=== PATIENT | male | born 1980 | race Hispanic/Latino ===

== ENCOUNTER 2016-03-14 12:49 | Emergency (ER) | payer SELFPAY ==
[2016-03-14] MEDS ORDERED: Thiamine HCl 200 MG/2 ML VIAL ONE (13:24)
[2016-03-14 13:37] LABS: Bilirubin Negative (Negative); Blood, Urine Trace (Negative); Glucose, Urine (Dipstick) Negative (Negative); Ketone, Urine Negative (Negative); Nitrite Negative (Negative); Protein, Urine (Dipstick) Negative (Neg-Trace); Urobilinogen 0.2 mg/dL (0.2-1.0)
[2016-03-14] MEDS ORDERED: Ketorolac Tromethamine 30 MG/ML VIAL ONE (13:38)
[2016-03-14 13:45] LABS: #Basophils 0.1 thou/uL (0.0-0.2); #Eosinphils 0.1 thou/uL (0.0-0.7); #Lymphocytes 1.4 thou/uL (1.20-3.40); #Monocytes 0.4 thou/uL (0.11-0.59); #Neutrophils 4.3 thou/uL (1.40-6.50); %Basophils 1.3 % (0.0-1.0); Hematocrit 48.5 % (42.0-52.0); Mean Platelet Volume 7.3 fL (7.4-10.4); White Blood Cell (WBC) Count 6.3 thou/uL (4.8-10.8)
[2016-03-14 13:50] LABS: ALT (SGPT) 26 U/L (0-55); AST (SGOT) 17 U/L (5-34); Alkaline Phosphatase 92 U/L (40-150); Anion Gap 13 mmol/L (10-20); BUN (Urea Nitrogen) 14 mg/dL (8.9-20.6); Bilirubin, Total 0.6 mg/dL (0.2-1.2); Calc. Creatinine Clearance 0 mL/min (70-130); Calcium 9.1 mg/dL (7.8-10.44); Carbon Dioxide 27 mmol/L (22-29); Chloride 104 mmol/L (98-107); Estimated GFR-MDRD Greater than 90; Globulin 2.7 g/dL (2.4-3.5); Lipase 24 U/L (8-78); Protein, Total 7.1 g/dL (6.0-8.3)
[2016-03-14 13:51] LABS: Bacteria/HPF None Seen HPF (None Seen); RBC/HPF 0-3 HPF (0-3); Squamous Epithelial None Seen HPF (0-3); WBC/HPF None Seen HPF (0-3)
[2016-03-14 13:56] LABS: Troponin I Less than 0.010 ng/mL (< 0.028)
[2016-03-14 14:42] LABS: Methadone Not Detected (NotDetected); Methamphetamine Not Detected (NotDetected)
--- NOTE | 2016-03-14 16:02 | PICIS ---
[facility] EMERGENCY RECORD TRIAGE (13:18) PATIENT: PAYMENT: SJX Self Pay. (13:18) NAME: Jarad Busch JR, AGE: 35, GENDER: male, : Carolyn 1980, TIME OF GREET: Sun Mar 14, 2016 12:50, PREFERRED LANGUAGE: Kittitian, ETHNICITY: or , ECODE BILLING MAP: [facility], KG WEIGHT: 72.57 (est.), , , PERSON ID: [id number], PCP: None. (12:50 RHIC) Zip Code: [address], PHONE: . (13:44) COMPLAINT: Weakness. (12:50 RHIC) ADMISSION: URGENCY: 3 Urgent, ADMISSION SOURCE: Home, TRANSPORT: CAR, BED: TRIAGE. (12:50 RHIC) ASSESSMENT: Assessment: PATIENT STATES FEELING BAD TODAY, WEAK, DRY MOUTH AFTER DRINKING ETOH LAST NIGHT. (12:56 RHIC) IMMUNIZATIONS: Flu vaccine not up to date, Tetanus not up to date. (12:56 RHIC) SIRS SCORING: Heart Rate 110-139 (2), Temp range 96.8-101.1 (0), respiratory rate 12-24 (0), Mental Status altered: no (0). (12:56 RHIC) TRIAGE SCREENING: Patient denies suicidal ideation, Patient denies presence of domestic violence. (12:56 RHIC) TREATMENTS IN PROGRESS: Treatments given Prehospital: none. (12:56 RHIC) PROVIDERS: TRIAGE NURSE: Winter Swain RN. (12:50 RHIC) VITAL SIGNS: BP 158/99, Pulse 113, Resp 20, Pain 10, O2 Sat 98, on Room Air, Time 03/14/2016 12:54. (12:54 RHIC) KNOWN ALLERGIES No Known Drug Allergies CURRENT MEDICATIONS (12:54 RHIC) antacid VITAL SIGNS VITAL SIGNS: BP: 158/99, Pulse: 113, Resp: 20, Pain: 10, O2 sat: 98 on Room Air, Time: 03/14/2016 12:54. (12:54 RHIC) BP: 160/97, Pulse: 89, Resp: 17, O2 sat: 98 on Room Air, Time: 03/14/2016 13:30. (13:30 KMOR) BP: 132/77, Pulse: 87, Resp: 17, O2 sat: 98 on Room Air, Time: 03/14/2016 13:45. (13:45 KMOR) Temp: 98.5 (Oral), Time: 03/14/2016 14:26. (14:26 KMOR) BP: 136/80, Pulse: 95, Resp: 16, Pain: 8, O2 sat: 99 on Room Air, Time: 03/14/2016 14:30. (14:30 KMOR) BP: 128/67, Pulse: 82, Resp: 16, Pain: 8, O2 sat: 97 on Room Air, Time: 03/14/2016 15:00. (15:00 KMOR) Temp: 98.4, Time: 03/14/2016 15:30. (15:30 KMOR) NURSING ASSESSMENT: CARDIOVASCULAR (13:45 KMOR) CONSTITUTIONAL: Patient arrives ambulatory, Gait steady, History obtained from patient, Patient appears, uncomfortable, Patient cooperative, Patient alert, Oriented to person, place and &a-1R&a+25V*p+0X*a4343T*c202B*c15G*c2P*p-0X&a-25V&a+1R Name: Jarad Busch : 1980 M35 MedRec: [id number] AcctNum: [id number] Prepared: Norma Mar 14, 2016 15:34 by Interface Page 1 of 13 pMD [facility] EMERGENCY RECORD time, Skin warm, Skin dry, Skin normal in color, Mucous membranes pink, Mucous membranes, tacky, Patient is well-groomed, Patient complains of Weakness, Patient reports weakness and fatigue starting today. Repots was drinking last night and did not sleep well. Reports no cardiac history. PAIN: aching pain, on a scale 0-10 patient rates pain as 10, headache. CARDIOVASCULAR: Cardiovascular assessment findings include heart rate, tachycardic, Rate 115, Heart rhythm normal sinus, Heart sounds normal, S1, S2, Left radial pulse +4(strong and bounding), Right radial pulse +4(strong and bounding), No associated diaphoresis, no associated dyspnea, no associated dizziness, no associated palpitations, no associated paresthesias, no associated syncopal episode, Associated with weakness, generalized. RESPIRATORY/CHEST: Breath sounds clear, Respiratory assessment findings include respiratory effort easy, Respirations regular, Conversing normally, Neck and chest exam findings include trachea midline, Chest expansion equal, Chest movement symmetrical, no signs of distress, no associated cough noted. NOTES: Patient tolerated procedure well. NURSING PROCEDURE: FAMILY RESOURCE MANAGEMENT SPECIALIST (12:55 KMOR) PATIENT IDENTIFIER: Patient actively involved in identification process, Patient's identity verified by patient stating name, Patient's identity verified by patient stating date. FAMILY RESOURCE MANAGEMENT SPECIALIST: Cardiac monitoring indicated for weakness, Patient placed on passenger car inspector, Heart rate: 113, showing sinus tachycardia, Patient placed on non-invasive blood pressure monitor, with disposable blood pressure cuff applied, Patient placed on continuous pulse oximetry, Adult/pediatric oxisensor applied, Oxygen saturation 97%. NOTES: Patient tolerated procedure well. NURSING PROCEDURE: DISCHARGE NOTE (15:30 KMOR) DISCHARGE: Patient discharged to home, ambulating without assistance, family driving, accompanied by other family member, Summary of Care printed/ provided, Transition record given to patient, Discharge instructions given to patient, Simple or moderate discharge teaching performed, by BHARATH Mcgraw, Discharge instructions and follow up reviewed with patient. Pt ambulatory to discharge desk., Above person(s) verbalized understanding of discharge instructions and follow-up care. BELONGINGS: Belongings remain with patient, Valuables remain with patient. VITAL SIGNS: Temp: 98.4. NURSING PROCEDURE: EKG CHART (12:52 KMOR) PATIENT IDENTIFIER: Patient actively involved in identification process, Patient's identity verified by patient stating name, &a-1R&a+25V*p+0X*d8020A*c202B*c15G*c2P*p-0X&a-25V&a+1R Name: Jarad Busch Claudia HILL : 1980 M35 MedRec: [id number] AcctNum: [id number] Prepared: Norma Mar 14, 2016 15:34 by Interface Page 2 of 13 pMD [facility] EMERGENCY RECORD Patient's identity verified by patient stating date. EKG: EKG indicated for complaint of chest pain, 12 lead EKG performed on the left chest, done by BHARATH Mcgraw, first EKG. FOLLOW-UP: After procedure, EKG for interpretation given to Dr. Raman. NOTES: Patient tolerated procedure well. NURSING PROCEDURE: IV PATIENT IDENITIFIER: Patient actively involved in identification process, Patient's identity verified by patient stating name, Patient's identity verified by patient stating date. (13:20 KMOR) Patient actively involved in identification process, Patient's identity verified by patient stating name, Patient's identity verified by patient stating date. (15:31 KMOR) IV SITE 1: IV therapy indicated for hydration, IV therapy indicated for medication administration, IV established, to the left antecubital, using an 18 gauge catheter, Saline lock established, Flushed with normal saline (mls): 10CC, Labs drawn at time of placement, labeled in the presence of the patient and sent to lab. (13:20 KMOR) FOLLOW-UP SITE 1: After procedure, 2x3 ensure dressing applied, After procedure, no drainage at IV site, After procedure, no swelling at IV site, After procedure, no redness at IV site. (13:20 KMOR) IV discontinued, due to patient being discharged, catheter intact. (15:31 KMOR) NOTES: Patient tolerated procedure well. (13:20 KMOR) Patient tolerated procedure well. (15:31 KMOR) NURSING PROCEDURE: NURSE NOTES NURSES NOTES: Notes: Warm blanket provided to patient. (13:37 KMOR) Notes: Patient ambulatory to bathroom with steady gait. (13:57 KMOR) Notes: Patient reports still feeling back, reports just really tired, family at bedside. Informed patient would be getting another liter of fluids. Lights turned down, patient encouraged to rest. (14:16 KMOR) Notes: Patient ambulatory to bathroom with steady gait. (14:39 KMOR) NURSING PROCEDURE: URINE COLLECTION (13:20 KMOR) PATIENT IDENTIFIER: Patient actively involved in identification process, Patient's identity verified by patient stating name, Patient's identity verified by patient stating date. URINE COLLECTION MALE: Urine collected by void, output amount (mL) 150ML, urine clear in color, and clear, Specimen labeled in the presence of the patient and sent to lab. NOTES: Patient tolerated procedure well. &a-1R&a+25V*p+0X*u0962R*c202B*c15G*c2P*p-0X&a-25V&a+1R Name: Jarad Busch JR : 1980 M35 MedRec: [id number] AcctNum: [id number] Prepared: Norma Mar 14, 2016 15:34 by Interface Page 3 of 13 [facility] EMERGENCY RECORD ORDER DETAILS Order Name: FAMILY RESOURCE MANAGEMENT SPECIALIST ED, Status: Done, Time: 13:42 03/14/2016, User: LOBO, - Ordered for: DO Raman Joseph, - Entered by: BHARATH Reeder, Mariluz Green Mar 14, 2016 13:41, - Quantity: 1, Order Name: Cardiac Profile w/CKMB & Troponin - I, Status: Active, Time: 13:13 03/14/2016, User: IRVING, - Ordered for: DO Raman Joseph, - Entered by: DO Raman Joseph - Norma Mar 14, 2016 13:13, - Quantity: 1, Order Name: CBC with Differential, Status: Active, Time: 13:13 03/14/2016, User: IRVING, - Ordered for: DO Raman Joseph, - Entered by: DO Raman Joseph - Norma Mar 14, 2016 13:13, - Quantity: 1, Order Name: Comprehensive Metabolic Panel, Status: Active, Time: 13:13 03/14/2016, User: IRVING, - Ordered for: DO Raman Joseph, - Entered by: DO Raman Joseph - Norma Mar 14, 2016 13:13, - Quantity: 1, Order Name: Drug Screen, Urine, Status: Active, Time: 14:24 03/14/2016, User: IRVING, - Ordered for: DO Raman Joseph, - Entered by: DO Raman Joseph - Norma Mar 14, 2016 14:24, - Quantity: 1, Order Name: EKG 12 Lead in Emergency Room, Status: Active, Time: 13:41 03/14/2016, User: LOBO, - Ordered for: DO Raman Joseph, - Entered by: BHARATH Reeder, Mariluz Green Mar 14, 2016 13:41, - Quantity: 1, Order Name: Lipase, Status: Active, Time: 13:13 03/14/2016, User: IRVING, - Ordered for: DO Raman Joseph, - Entered by: DO Raman Joseph - [place] Mar 14, 2016 13:13, - Quantity: 1, Order Name: SALINE LOCK, Status: Done, Time: 13:21 03/14/2016, User: LOBO, - Ordered for: DO Raman Joseph, - Entered by: DO Raman Joseph - [place] Mar 14, 2016 13:13, - Quantity: 1, Order Name: Urinalysis w/ Rflx Microscopic, Status: Active, Time: 13:13 03/14/2016, User: IRVING, - Ordered for: DO Raman Joseph, - Entered by: DO Raman Joseph - [place] Mar 14, 2016 13:13, - Quantity: 1. MEDICATION ADMINISTRATION SUMMARY &a-1R&a+25V*p+0X*j0486C*c202B*c15G*c2P*p-0X&a-25V&a+1R Name: Jarad Busch Claudia HLIL : 1980 M35 MedRec: [id number] AcctNum: [id number] Prepared: Norma Mar 14, 2016 15:34 by Interface Page 4 of 13 pMD [facility] EMERGENCY RECORD Drug Name: Normal Saline, Dose Ordered: 1000 mL/hr, Route: IV Fluid Infusion, Status: Given, Time: 14:13 03/14/2016, Drug Name: Toradol injection, Dose Ordered: 30 mg, Route: IV Push, Status: Given, Time: 13:40 03/14/2016, Drug Name: thiamine injection, Dose Ordered: 100 mg, Route: IV Push, Status: Given, Time: 13:32 03/14/2016, Drug Name: Normal Saline, Dose Ordered: 1000 mL/hr, Route: IV Fluid Infusion, Status: Given, Time: 13:25 03/14/2016, Detailed record available in Medication Service section. MEDICATION SERVICE Normal Saline: Order: Normal Saline (0.9 % sodium chloride) - Dose: 1000 mL/hr : IV Fluid Infusion Schedule: Now Ordered by: Nathaniel Raman DO Entered by: DO Norma Rondon Mar 14, 2016 13:13 , Acknowledged by: BHARATH Schreiber Mar 14, 2016 13:20 Documented as given by: BHARATH Schreiber Mar 14, 2016 13:25 Patient, Medication, Dose, Route and Time verified prior to administration. Amount given: 1000ML, IV SITE #1 IV fluids established for hydration, IV SITE #1 into left antecubital, IV SITE #1 1st bag hung, amount 1 Liter hung, via primary tubing, Connections checked prior to administration, Line traced prior to administration, Catheter placement confirmed via flush prior to administration, IV site without signs or symptoms of infiltration during medication administration, No swelling during administration, No drainage during administration, IV flushed after administration, Correct patient, time, route, dose and medication confirmed prior to administration, Patient advised of actions and side-effects prior to administration, Allergies confirmed and medications reviewed prior to administration, Patient in position of comfort, Side rails up, Cart in lowest position, Family at bedside. : Follow Up : Response assessment performed, No signs or symptoms of allergic reaction noted, _IV SITE #1:_, IV fluid infusion discontinued, on [place] Mar 14, 2016 14:00, 35 minutes, ., Total amount infused: 1000ml. (14:00 KMOR) Normal Saline: Order: Normal Saline (0.9 % sodium chloride) - Dose: 1000 mL/hr : IV Fluid Infusion Schedule: Now Ordered by: Nathaniel Raman DO Entered by: DO Norma Rondon Mar 14, 2016 14:10 , Acknowledged by: BHARATH Shcreiber Mar 14, 2016 14:11 Documented as given by: BHARATH Schreiber Mar 14, 2016 14:13 Patient, Medication, Dose, Route and Time verified prior to administration. Amount given: 1000ml, IV SITE #1 IV fluids established for hydration, IV SITE #1 into right antecubital, IV SITE #1 2nd bag hung, amount 1 Liter hung, via primary tubing, Catheter placement confirmed via flush prior to administration, IV site without signs or &a-1R&a+25V*p+0X*t1163P*c202B*c15G*c2P*p-0X&a-25V&a+1R Name: Jarad Busch JR : 1980 M35 MedRec: [id number] AcctNum: [id number] Prepared: [place] Mar 14, 2016 15:34 by Interface Page 5 of 13 pMD [facility] EMERGENCY RECORD symptoms of infiltration during medication administration, No swelling during administration, No drainage during administration, IV flushed after administration, Correct patient, time, route, dose and medication confirmed prior to administration, Patient advised of actions and side-effects prior to administration, Allergies confirmed and medications reviewed prior to administration, Patient in position of comfort, Side rails up, Cart in lowest position, Family at bedside. : Follow Up : _IV SITE #1:_, IV fluid infusion discontinued, on TueMar 14, 2016 15:25, Total fluid hydration time IV site 1 1 hour, 15 minutes, ., Total amount infused: 1000ml, IV Discontinued with catheter intact, IV Line flushed after administration. (15:25 KMOR) thiamine injection: Order: thiamine injection (thiamine HCl) - Dose: 100 mg : IV Push Schedule: Now Ordered by: Nathaniel Raman DO Entered by: DO Norma Rondon Mar 14, 2016 13:14 , Acknowledged by: Mariluz Reeder RN [place] Mar 14, 2016 13:20 Documented as given by: Mariluz Reeder RN [place] Mar 14, 2016 13:32 Patient, Medication, Dose, Route and Time verified prior to administration. Amount given: 100MG, IV SITE #1 IVP, initial medication, Slowly, Connections checked prior to administration, Line traced prior to administration, Catheter placement confirmed via flush prior to administration, IV site without signs or symptoms of infiltration during medication administration, No swelling during administration, No drainage during administration, IV flushed after administration, Correct patient, time, route, dose and medication confirmed prior to administration, Patient advised of actions and side-effects prior to administration, Allergies confirmed and medications reviewed prior to administration, Patient in position of comfort, Side rails up, Cart in lowest position. : Follow Up : Response assessment performed, No signs or symptoms of allergic reaction noted, No change in symptoms, _IV SITE #1:_. (14:00 KMOR) Toradol injection: Order: Toradol injection (ketorolac tromethamine) - Dose: 30 mg : IV Push Schedule: Now Ordered by: Nathaniel Raman DO Entered by: Nathaniel Raman DO [place] Mar 14, 2016 13:35 , Acknowledged by: Mariluz Reeder RN [place] Mar 14, 2016 13:37 Documented as given by: Mariluz Reeder RN [place] Mar 14, 2016 13:40 Patient, Medication, Dose, Route and Time verified prior to administration. Amount given: 30mg, IV SITE #1 IVP, subsequent different medication, Slowly, Awake and alert- acceptable, Connections checked prior to administration, Line traced prior to administration, Catheter placement confirmed via flush prior to administration, IV site without signs or symptoms of infiltration during medication &a-1R&a+25V*p+0X*i1951L*c202B*c15G*c2P*p-0X&a-25V&a+1R Name: Jarad Busch JR : 1980 M35 MedRec: [id number] AcctNum: [id number] Prepared: Norma Mar 14, 2016 15:34 by Interface Page 6 of 13 pMD [facility] EMERGENCY RECORD administration, No swelling during administration, No drainage during administration, IV flushed after administration, Correct patient, time, route, dose and medication confirmed prior to administration, Patient advised of actions and side-effects prior to administration, Allergies confirmed and medications reviewed prior to administration, Patient in position of comfort, Side rails up, Cart in lowest position, Family at bedside. : Follow Up : Response assessment performed, No signs or symptoms of allergic reaction noted, _IV SITE #1:_. (14:00 KMOR) HPI WEAK-DIZZY (13:29 JPIP) CHIEF COMPLAINT: Patient presents for evaluation of weakness, Patient presents for evaluation of dizziness, Patient presents for evaluation of Generalized weakness and headache. HISTORIAN: History provided by patient. LOCATION: Symptoms are generalized, global headache. QUALITY: Patient is alert and oriented to person, place and time, [place] coma score is 15. SEVERITY: Current severity of pain rated as 10/10. TIME COURSE: Sudden onset of symptoms, Date and time of onset was this AM, There has been no change in the patient's symptoms over time, Patient states he's had symptoms like this before but did not seek medical care. ASSOCIATED WITH: No associated ataxia, No associated chest pain, Associated with chills, No associated ear pain, No associated fever, No associated gait disturbance, Associated with headache, No associated nausea, No associated palpitations, No associated vomiting, No associated visual changes, No associated upper respiratory infection, Also CO "dry mouth" Patient states he went out drinking last night. EXACERBATED BY: Patient's condition exacerbated by nothing. RELIEVED BY: Patient's condition relieved by nothing, Patient's condition relieved by nothing because patient has not tried anything for relief. ROS (13:31 JPIP) CONSTITUTIONAL: Historian reports chills, denies fever, denies lethargy, denies malaise. EYES: Historian denies eye pain, denies eye redness, denies photophobia, denies vision changes. ENT: Historian denies dysphagia, denies otalgia, denies otorrhea, denies rhinorrhea, denies sinus pain, denies sore throat. CARDIOVASCULAR: Historian denies chest pain, denies dyspnea on exertion, denies palpitations. RESPIRATORY: Historian denies cough, denies shortness of breath. GI: Historian denies abdominal pain, denies nausea, denies vomiting. MUSCULOSKELETAL: Historian denies myalgias. SKIN: Historian denies rash, denies skin changes, denies skin &a-1R&a+25V*p+0X*l2796I*c202B*c15G*c2P*p-0X&a-25V&a+1R Name: Jarad Busch Claudia HILL : 1980 M35 MedRec: [id number] AcctNum: [id number] Prepared: Norma Mar 14, 2016 15:34 by Interface Page 7 of 13 pMD [facility] EMERGENCY RECORD lesions. NEUROLOGIC: Historian denies confusion, denies dizziness, denies focal weakness, reports headache, denies paresthesias, denies vertigo. generalized weakness. ENDOCRINE: Historian denies polydipsia, denies polyuria. NOTES: All systems reviewed, negative except as described above. PAST MEDICAL HISTORY MEDICAL HISTORY: No past medical history. (12:56 RHIC) MALE SURGICAL HISTORY: Patient has no surgical history. (12:56 RHIC) PSYCHIATRIC HISTORY: No previous psychiatric history. (12:56 RHIC) SOCIAL HISTORY: Patient drinks socially, every week, Alcohol history notes: 3x a week - beer, Patient denies drug use, Patient has no smoking history. (12:56 RHIC) NOTES: Nursing records reviewed, Medication list reviewed. (13:34 JPIP) PHYSICAL EXAM (13:32 JPIP) CONSTITUTIONAL: Vital signs reviewed, Patient afebrile, Pulse, tachycardic, Blood pressure, hypertensive, Respiratory rate normal, Patient appears, uncomfortable, Patient appears pain free, Patient alert and oriented to person, place and time, CO 10/10 pain but is in bed and appears, at worst, to be uncomfortable. HEAD: Head exam included findings of head atraumatic, normocephalic. EYES: Eye exam included findings of eyelids normal to inspection, Pupils equally round and reactive to light, Left pupil 3 mm in size, Right pupil 3 mm in size, Extraocular muscles intact, Conjunctiva normal, Sclera normal, no periorbital ecchymosis, no periorbital edema, no periorbital erythema, no nystagmus. ENT: Pharynx exam normal, not injected, no swelling, symmetrical, Uvula exam normal, midline, no edema, Mouth exam normal, mucous membranes moist. NECK: Neck exam included findings of normal range of motion, Trachea midline, no cervical adenopathy, no tenderness. RESPIRATORY CHEST: Respiratory exam included findings of no respiratory distress, Breath sounds clear, No wheezing, No rales, No rhonchi, Breath sounds not absent, Breath sounds not diminished. CARDIOVASCULAR: Cardiovascular exam included findings of, rate tachycardic, rhythm regular, Heart sounds normal, no murmurs, no rub. ABDOMEN MALE: Abdominal exam included findings of abdomen nontender, Bowel sounds normal, Liver normal, Spleen normal, no distension, no mass, no pulsatile masses, no peritoneal signs, no rigidity, no guarding, no rebound. BACK: no costovertebral angle tenderness. UPPER EXTREMITY: Upper extremity exam included findings of &a-1R&a+25V*p+0X*c3873Y*c202B*c15G*c2P*p-0X&a-25V&a+1R Name: Jarad Busch JR : 1980 M35 MedRec: [id number] AcctNum: [id number] Prepared: Norma Mar 14, 2016 15:34 by Interface Page 8 of 13 pMD [facility] EMERGENCY RECORD inspection normal, Range of motion normal. LOWER EXTREMITY: Lower extremity exam included findings of inspection normal, Range of motion normal. NEURO: [place] coma scale 15, Neuro exam findings include patient oriented to person, place and time, Speech normal, no focal motor deficits, no nystagmus, CN II-XII intact, no extremity weakness. SKIN: Skin exam included findings of skin warm, dry, and normal in color. LYMPHATIC: Lymphatic exam included findings of cervical nodes normal, Submandibular normal. PSYCHIATRIC: Psychiatric exam included findings of patient oriented to person place and time, Affect, flat. LAB INTERPRETATION (14:18 JPIP) INTERPRETATION: I reviewed the lab results, All labs normal except as noted below, No clinically significant lab abnormalities, CBC normal, Chemistry abnormal, Glucose elevated, Cardiac enzymes normal, Liver functions normal, Lipase normal, Urinalysis normal. EVENTS TRANSFER: Triage to Emergency Triage. (Norma Mar 14, 2016 12:50 RHIC) Emergency Triage to Emergency Room -03. (12:58 KMOR) Removed from Emergency Emergency Room -03. (15:32 KMOR) EKG INTERPRETATION (13:42 JPIP) MONITOR STRIP: him clerk strip interpreted by Emergency Department Physician, Monitor strip shows sinus tachycardia, with no ectopics. 12 LEAD EKG INTERPRETATION: 12 lead EKG interpreted by Emergency Department Physician at time of study, 12 lead EKG shows, sinus tachycardia, Rate (beats per minute): 114, with no ectopics, Interpretation: normal EKG, Conduction normal, ST segments normal, T waves normal, [place] normal, Clinical impression:, other dysrhythmia Sinus tachycardia. O2SAT INTERPRETATION (13:06 JPIP) O2SAT: Continuous pulse oximetry, Oxygen saturation 98%, on room air, Oxygen saturation interpretation: Normal, No intervention required. DOCTOR NOTES (14:23 JPIP) TEXT: Discussed findings with patient. PROBLEM LIST No recorded problems DIAGNOSIS &a-1R&a+25V*p+0X*v4585I*c202B*c15G*c2P*p-0X&a-25V&a+1R Name: Jarad Busch JR : 1980 M35 MedRec: [id number] AcctNum: [id number] Prepared: Norma Mar 14, 2016 15:34 by Interface Page 9 of 13 pMD [facility] EMERGENCY RECORD FINAL: PRIMARY: None. (14:25 JPIP) PRIMARY: DEHYDRATION. (15:31 KMOR) DISPOSITION PATIENT: Disposition Type: Discharge, Disposition: *Discharge Home, Condition: Good. (14:24 JPIP) Patient left the department. (15:32 KMOR) INSTRUCTION (15:26 JPIP) DISCHARGE: DEHYDRATION (6Y-ADULT). SPECIAL: Follow up with Primary Care Physician within 72 hours Return to the Emergency Department for increased symptoms problems or concerns. PRESCRIPTION No recorded prescriptions IMAGING (14:26 KMOR) *EKG: Image captured from scanner. MONITOR STRIPS: Image captured from scanner. RESULTS LABORATORY: Urinalysis w/ Rflx Microscopic Collection DT: [place] Mar 14, 2016 13:34, Color Yellow , Range (Yellow), Clarity Clear , Range (Clear), Specific [place], Urine 1.010 , Range (1.005-1.030), pH, Urine 6.5 , Range (5.0-9.0), Leukocyte Negative , Range (Negative), Nitrite Negative , Range (Negative), Protein, Urine (Dipstick) Negative mg/dL, Range (Neg-Trace), Glucose, Urine (Dipstick) Negative mg/dL, Range (Negative), Ketone, Urine Negative mg/dL, Range (Negative), Urobilinogen 0.2 mg/dL, Range (0.2-1.0), Bilirubin Negative , Range (Negative), *Blood, Urine Trace - H , Range (Negative). (13:47 [facility]) Cardiac Profile w/CKMB & TropI Collection DT: [place] Mar 14, 2016 13:32, CKMB 1.3 ng/mL, Range (0-6.6), Troponin I Less than 0.010 ng/mL, Range (< 0.028), Reference Range , 0.00 - 0.028 ng/mL Negative 0.029 - 0.29 ng/mL , Indeterminate Greater or Equal to 0.3 ng/mL Strongly suggests VT , . (14:02 [facility]) Urine Microscopic Collection DT: [place] Mar 14, 2016 13:34, RBC/HPF 0-3 HPF, Range (0-3), WBC/HPF None Seen HPF, Range (0-3), Squamous Epithelial None Seen HPF, Range (0-3), Bacteria/HPF None Seen HPF, Range (None Seen). (14:02 [facility]) &a-1R&a+25V*p+0X*v6174U*c202B*c15G*c2P*p-0X&a-25V&a+1R Name: Jarad Busch JR : 1980 M35 MedRec: [id number] AcctNum: [id number] Prepared: [place] Mar 14, 2016 15:34 by Interface Page 10 of 13 pMD [facility] EM[facility]GENCY RECORD Urinalysis w/ Rflx Microscopic Collection DT: [place] Mar 14, 2016 13:34, Color Yellow , Range (Yellow), Clarity Clear , Range (Clear), Specific [place], Urine 1.010 , Range (1.005-1.030), pH, Urine 6.5 , Range (5.0-9.0), Leukocyte Negative , Range (Negative), Nitrite Negative , Range (Negative), Protein, Urine (Dipstick) Negative mg/dL, Range (Neg-Trace), Glucose, Urine (Dipstick) Negative mg/dL, Range (Negative), Ketone, Urine Negative mg/dL, Range (Negative), Urobilinogen 0.2 mg/dL, Range (0.2-1.0), Bilirubin Negative , Range (Negative), *Blood, Urine Trace - H , Range (Negative). (14:02 [facility]) Lipase Collection DT: [place] Mar 14, 2016 13:32, Lipase 24 U/L, Range (8-78). (14:02 [facility]) Comprehensive Metabolic Panel Collection DT: [place] Mar 14, 2016 13:32, Sodium 140 mmol/L, Range (136-145), Potassium 3.8 mmol/L, Range (3.5-5.1), Chloride 104 mmol/L, Range (98-107), Carbon Dioxide 27 mmol/L, Range (22-29), Anion Gap 13 mmol/L, Range (10-20), BUN (Urea Nitrogen) 14 mg/dL, Range (8.9-20.6), Creatinine 0.93 mg/dL, Range (0.7-1.3), Estimated GFR-MDRD Greater than 90 , Reference Range for Estimated GFR: Greater than 90, mL/min/1.73 m2 NOTE: The MDRD equation has not been validated for use, with the elderly (over 70 years of age), women, patients with, serious comorbid condition or persons with extremes of body size, muscle, mass, or nutritional status. , *Glucose 111 - H mg/dL, Range (70-105), Calcium 9.1 mg/dL, Range (7.8-10.44), Bilirubin, Total 0.6 mg/dL, Range (0.2-1.2), Protein, Total 7.1 g/dL, Range (6.0-8.3), NOTE: Plasma values are generally 0.3 to 0.5 g/dL higher than serum values, due to the presence of fibrinogen. , Albumin 4.4 g/dL, Range (3.5-5.0), Globulin 2.7 g/dL, Range (2.4-3.5), Alb/Glob Ratio 1.6 g/dL, Range (1.2-2.2), Alkaline Phosphatase 92 U/L, Range (40-150), AST (SGOT) 17 U/L, Range (5-34), ALT (SGPT) 26 U/L, Range (0-55). (14:02 [facility]) CBC with Differential Collection DT: [place] Mar 14, 2016 13:32, White Blood Cell (WBC) Count 6.3 thou/uL, Range (4.8-10.8), Red Blood Cell (RBC) Count 5.50 mill/uL, Range (4.70-6.10), Hemoglobin 16.2 g/dL, Range (14.0-18.0), Hematocrit 48.5 %, Range (42.0-52.0), Mean Corpuscular Volume 88.1 fl, Range (80.0-94.0), &a-1R&a+25V*p+0X*p6817R*c202B*c15G*c2P*p-0X&a-25V&a+1R Name: Jraad Busch JR : 1980 M35 MedRec: [id number] AcctNum: [id number] Prepared: [place] Mar 14, 2016 15:34 by Interface Page 11 of 13 pMD [facility] EM[facility]GENCY RECORD Mean Corpuscular Hemoglobin 29.5 pg, Range (27.0-31.0), Mean Corpuscular HGB CONC 33.5 g/dL, Range (32.0-36.0), *RBC Distribution Width 11.2 - L %, Range (11.5-14.5), Platelet Count 299 thou/uL, Range (130-400), *Mean Platelet Volume 7.3 - L fL, Range (7.4-10.4), %Neutrophils 68.8 %, Range (42.0-75.0), %Lymphocytes 23.0 %, Range (21.0-51.0), %Monocytes 6.0 %, Range (0.0-10.0), %Eosinophils 1.0 %, Range (0.0-10.0), *%Basophils 1.3 - H %, Range (0.0-1.0), #Neutrophils 4.3 thou/uL, Range (1.40-6.50), #Lymphocytes 1.4 thou/uL, Range (1.20-3.40), #Monocytes 0.4 thou/uL, Range (0.11-0.59), #Eosinphils 0.1 thou/uL, Range (0.0-0.7), #Basophils 0.1 thou/uL, Range (0.0-0.2). (14:02 [facility]) Drug Screen, Urine Collection DT: [place] Mar 14, 2016 14:34, THC/Cannabinoid Screen Not Detected , Range (NotDetected), Phencyclidine (PCP) Not Detected , Range (NotDetected), Cocaine Metabolite Screen Not Detected , Range (NotDetected), Methamphetamine Not Detected , Range (NotDetected), Opiate Screen Not Detected , Range (NotDetected), Amphetamine Not Detected , Range (NotDetected), Benzodiazepine Screen Not Detected , Range (NotDetected), Tricyclic Screen Not Detected , Range (NotDetected), Methadone Not Detected , Range (NotDetected), Barbiturates Screen Not Detected , Range (NotDetected), Oxycodone Screen Not Detected , Range (NotDetected), Propoxyphene Screen Not Detected , Range (NotDetected), Drug Screen Cutoff , Range (), The Cocodot Profile-V Panel for Qualitative Drugs of Abuse assays are for, presumptive screening testing only. The drug class and detection limits, are as follows: Drug Class Detection Limit Amphetamine , 500 ng/mL* Barbiturates 200 ng/mL , Benzodiazepines 150 ng/mL* Cocaine 150 ng/mL*, Methamphetamine 500 ng/mL* Methadone 200, ng/mL* Opiates 100 ng/mL* Oxycodone , 100 ng/mL PCP 25 ng/mL Propoxyphene , 300 ng/mL Tricyclic Antidepressants 300 ng/mL Cannabinoids (THC) , 50 ng/mL Tests which yield a presumptive positive result must be , tested using a more specific alternate chemical method in order to obtain, a confirmed analytical result. Additional &a-1R&a+25V*p+0X*b9498N*c202B*c15G*c2P*p-0X&a-25V&a+1R Name: Jarad Busch JR : 1980 5 MedRec: [id number] AcctNum: [id number] Prepared: [place] Mar 14, 2016 15:34 by Interface Page 12 of 13 pMD [facility] EMERGENCY RECORD confirmation and identification, may be ordered on a routine basis, if desired. Presumptive positive urines, are held for two weeks. . (15:25 [facility]) Alarcon: IRVING=DO Raman Joseph KMOR=BHARATH Reeder, Mariluz BACA=BHARATH Swain, Winter &a-1R&a+25V*p+0X*p8079Q*c202B*c15G*c2P*p-0X&a-25V&a+1R Name: Jarad Busch JR : 1980 M35 MedRec: [id number] AcctNum: [id number] Prepared: [place] Mar 14, 2016 15:34 by Interface Page 13 of 13 pMD MTDD
== END 2016-03-14 15:30 | disposition home or self-care (01) ==
LOC: BURERS 12:49
DX: E86.0 Dehydration (principal)
CPT/HCPCS: 80053; 80306; 81003; 81015; 82553; 83690; 84484; 85025; 93005; 96361; 96374; 96375; J1885; J3411